=== PATIENT | male | born 1960 | race Caucasian/White ===

== ENCOUNTER 2020-08-24 23:17 | Emergency (ER) | payer BC, OTHER ==
[~2020-08-24] VITALS: Ht 175.3 cm; Wt 80.7 kg
[2020-08-25] MEDS ORDERED: SULFAMETH/TRIMETH 800/160 MG TABLET PO ONE (00:45)
[2020-08-25] MEDS ORDERED: HYDROCODONE/APAP 5-325MG TABLET PO ONE (00:45)
[2020-08-25] MEDS ORDERED: HYDROCODONE/APAP 5-325MG TABLET ONE (00:52)
[2020-08-25] MEDS ORDERED: SULFAMETH/TRIMETH 800/160 MG TABLET ONE (00:52)
--- NOTE | 2020-08-25 00:57 | NUR ---
Patient discharged to home in stable condition. Patient's girlfriend is driving him home. Written and verbal after care instructions given. Patient verbalizes understanding of instructions. Stressed follow up or return to ER for worsening s/s.
[2020-08-25 00:58] VITALS: BP 129/67
== END 2020-08-25 01:08 | disposition home or self-care (01) ==
LOC: ER 23:19
DX: L03.116 Cellulitis of left lower limb (principal); Z88.0 Allergy status to penicillin
CPT/HCPCS: A4663